=== PATIENT | female | born 1960 | race Caucasian/White ===

== ENCOUNTER → 2021-03-09 08:08 | Outpatient (CLI) | payer BC, SELFPAY ==
--- NOTE | ~2021-03-09 | US_ITS ---
EXAMINATION: US pelvic complete DATE: 03/09/2021 08:34 INDICATION: Left lower quadrant pain TECHNIQUE: Multiple transabdominal and endovaginal sonographic images of the pelvis were obtained. COMPARISON: None. FINDINGS: The uterus is surgically absent. The ovaries are not visualized however no adnexal abnormal ity is seen. There is no free fluid in the pelvis. No sonographically detected abnormality is seen in the area of patient's left lower quadrant pain. IMPRESSION: 1. No sonographic correlate for the patient's symptoms. Reviewed, dictated and finalized at location B.
== END ==
PROVIDERS: Visit Provider Physician Assistant
DX: R10.32 Left lower quadrant pain (principal)
CPT/HCPCS: 76856

== ENCOUNTER → 2021-04-06 08:10 | Outpatient (CLI) | payer BC, SELFPAY ==
--- NOTE | ~2021-04-06 | CT_ITS ---
EXAMINATION: CT abdomen pelvis w con DATE: 04/06/2021 09:04 INDICATION: Left lower quadrant pain TECHNIQUE: Computed tomography (CT) of the abdomen and pelvis was performed with 100 cc Omnipaque 350 intravenous contrast. The dose-length product was 711.65 mGy-cm. Automated exposure control and iter ative reconstruction technique were employed. COMPARISON: None. FINDINGS: Bibasilar dependent atelectasis. Heart size is normal. No significant pleural or pericardia l effusion. Gallbladder is present. Nonobstructive bowel gas pattern. Colonic diverticulosis without evidence for diverticulitis. Normal appendix. The liver, spleen, pancreas, adrenal glands and right kidney are unremarkable. There is a small subce ntimeter hypodensity of the left kidney, most likely benign cysts. No free air or free fluid. Colonic diverticula without evidence for diverticulitis. There is a benign calcification in the left pelvis, likely sequela of epiploic appendagitis there is a fat-containing umbilical hernia. There is moderat e lumbar spondylosis. IMPRESSION: 1. No acute abdominal abnormality. Reviewed, dictated and finalized at location B. INTERFACE ARTIST
[2021-04-06 08:48] LABS: Estimated Glomerular Filt Rate > 60
== END ==
PROVIDERS: PCP Physician Assistant; Visit Provider Physician Assistant
DX: R10.32 Left lower quadrant pain (principal)
CPT/HCPCS: 74177; Q9967

== ENCOUNTER 2023-12-19 07:26 | Outpatient (CLI) | payer MEDICARE, SELFPAY ==
--- NOTE | ~2023-12-19 | DEXA_ITS ---
Bone Density Report Name: DELMAR DUKES Age: 63 Sex: Female Ethnicity: Lizzy Date of : 1960 Indication: postmenopausal; screening for osteoporosis; hysterectomy; Referring Provider: Caprice Carpenter Study: Bone densitometry was performed. Exam Date: December 19, 2023 Accession number: [id number] Bone Density: Region BMD T-score Z-score Classification AP Spine(L1-L4) 1.007 -0.4 1.4 Normal Femoral Neck (Left) 0.618 -2.1 -0.6 Osteopenia Total Hip (Left) 0.778 -1.3 -0.1 Osteopenia Femoral Neck (Right) 0.567 -2.5 -1.0 Osteoporosis Total Hip (Right) 0.757 -1.5 -0.3 Osteopenia Femoral Neck Mean 0.592 -2.3 -0.8 Osteopenia Total Hip Mean 0.768 -1.4 -0.2 Osteopenia World Health Organization criteria for BMD impression classify patients as: Normal (T-score at or above -1.0), Osteopenia (T-score between -1.0 and -2.5), or Osteoporosis (T-score at or below -2.5). 10-year Fracture Risk: FRAX not reported because: Some T-score for Spine Total or Hip Total or Femoral Neck at or below -2.5 Clinical Information Provided by Patient: Has used the following medications: Vitamin D, Calcium Has the following medical conditions: Hysterectomy Patient maximum height was 64.0 Menopause Age: 41 No regular weight bearing exercise Drinks caffeinated beverages Onset of menses at age 10 Number of children 0 Impression: The patient has osteoporosis, based on the Right Femoral Neck T-score. Discussion: INCREASED RISK OF FRACTURE. BONE DENSITY IS UNDESIRABLY LOW AT ONE OR MORE SKELETAL SITES, CONSISTENT WITH POSTMENOPAUSAL OSTEOPOROSIS. This patient's lowest T-score meets the World Health Organization's (WHO) criteria for osteoporosis at one or more sites (T-score -2.5 or below). In untreated patients, the risk of osteoporotic fracture increases approximately two-fold for each 1.0 SD decrease in T-score. Low bone density is not the only risk factor for fracture; also consider factors such as patient's age, frailty or poor health, risk of falling, risk of injury, previous osteoporotic fracture, family history of osteoporosis, cigarette smoking, low body weight, etc. Not everyone with low bone mineral density has osteoporosis; osteomalacia and other metabolic bone disorders should also be considered. Patients who have osteoporosis should be evaluated for specific diseases and conditions (secondary causes) that may cause or contribute to bone loss. The [place] Association of Clinical Endocrinologists (AACE) and National Osteoporosis Foundation (NOF) recommend pharmacologic intervention for all postmenopausal women whose T-score is in this range. The patient should follow a healthful lifestyle (good nutrition with adequate calcium and vitamin D, and appropriate weight-bearing exercise). Follow-Up: Co
== END 2023-12-19 07:27 | disposition home or self-care (01) ==
LOC: CHSIMG 07:34
PROVIDERS: PCP Internal Medicine; Visit Provider Internal Medicine
DX: Z78.0 Asymptomatic menopausal state (principal); M85.89 Other specified disorders of bone density and structure, multiple sites; M81.0 Age-related osteoporosis without current pathological fracture
CPT/HCPCS: 77080

== ENCOUNTER 2024-01-27 12:54 | Outpatient (CLI) | payer MEDICARE, SELFPAY ==
[2024-01-27 13:26] VITALS: BMI 29.2
[2024-01-27 13:27] VITALS: BP 140/74; PULSE 70; RESP 16; TEMP 36.3; O2SAT 94
[2024-01-27] MEDS: ZOLEDRONIC ACID 5 MG/100 ML 100 ML 400 MG IVPB (13:40)
== END 2024-01-27 12:55 | disposition home or self-care (01) ==
PROVIDERS: PCP Internal Medicine; Visit Provider Internal Medicine
DX: M81.0 Age-related osteoporosis without current pathological fracture (principal)
CPT/HCPCS: 96374; J3489

== ENCOUNTER 2024-07-02 14:30 | Outpatient (CLI) | payer MEDICARE, SELFPAY ==
--- NOTE | ~2024-07-02 | MM_ITS ---
EXAMINATION: MM screening ramu BI w freedom HISTORY: Screening mammogram TECHNIQUE: Craniocaudal and mediolateral oblique 3-D tomosynthesis images were obtained and synthetic 2-D images were generated. CAD analysis was submitted and interpreted. COMPARISON: No prior mammogram is available for comparison at this institution. BREAST PARENCHYMAL COMPOSITION:Dense: The breasts are heterogeneously dense, which may obscure small masses. FINDINGS: No suspicious mass, calcification, or architectural distortion are identified in either mercy ast to suggest malignancy. There has been no suspicious interval change. IMPRESSION: No mammographic evidence of malignancy. Recommend routine screening mammography in one year. BI-RADS Category 1: Negative Reviewed, dictated and finalized at location . BUILDER MACHINE
--- OUTSIDE RECORDS SUMMARY | 2024-07-02 16:53 | XMS_ITS | Clinical Summary ---
Author Organization [facility] Address [address] [place] [address] Care Team Providers Care Sap Crm Developer Name Role Phone Gautam Macias PA-C Primary Care Provider [phone] Sumeet Burnett MD Unavailable Allergies Active Allergy Reactions Criticality Noted Date Comments Iodinated Contrast Media Rash Low 02/16/2023 Shrimp (Diagnostic) Hives,Shortness of Breath High 1 Medications sertraline (ZOLOFT) 100 MG tablet Take 1 tablet (100 mg total) by mouth daily. Active atorvastatin (LIPITOR) 80 MG tablet Take 1 tablet (80 mg total) by mouth nightly at bedtime. Active metoprolol succinate ER (TOPROL-XL) 100 MG 24 hr tablet Take 1 tablet (100 mg total) by mouth daily. Active hydroCHLOROthia zide (HYDRODIURIL) 25 MG tablet Take 1 tablet (25 mg total) by mouth every morning. Active losartan (COZAAR) 100 MG tablet Take 1 tablet (100 mg total) by mouth daily. Active omeprazole (PRILOSEC) 20 MG capsule Take 1 capsule (20 mg total) by mouth daily. Active Zinc 50 MG Tab Activ e calcium carb-cholecalci ferol (CALCIUM 600+D) 600-10 MG-MCG Tab tablet 1 tablet daily. Active MULTIPLE VITAMIN OR Active vitamin C (ASCORBIC ACID) 250 MG tablet Take 1 tablet (250 mg total) by mouth daily. Active vitamin E 100 UNIT capsule Take 1 capsule (100 Units total) by mouth daily. Active Active Problems Problem Noted Date Diagnosed Date Vascular malformation (HHS/HCC) 03/15/2023 Chronic venous insufficiency 03/15/2023 Primary hypertension 03/15/2023 Hyperlipidemia, unspecified hyperlipidemia type 03/15/2023 Varicose veins of bilateral lower extremities with other complications 03/04/2023 Family History Relation Status Comments Father Maternal Grandfather Maternal Grandmother Mother Paternal Grandfather Paternal Grandmother Social History Tobacco Use Types Packs/Day Years Used Date Smoking Tobacco: Never Smokeless Tobacco: Never Tobacco Cessation:Counseling Given: Not Answered Alcohol Use Standard Drinks/Week Comments Not Currently 0 (1 standard drink = 0.6 oz pur e alcohol) Comments No Sex and Gender Information Value Date Recorded Sex Assigned at Not on file Legal Sex Female 11:26 PM GLAZE MIXER Gender Identity Not on file Sexual Orientation Not on file Last Filed Vital Signs Vital Sign Reading Time Taken Comments Blood Pressure 141/85 03/15/2023 2:07 PM GLAZE MIXER Pulse 82 03/15/2023 2:07 PM GLAZE MIXER Temperature - - Respiratory Rate 82 03/15/2023 2:07 PM GLAZE MIXER Oxygen Saturation 95% 03/15/2023 2:07 PM GLAZE MIXER Inhaled Oxygen Concentration - - Weight 75 kg (165 lb 4 oz) 03/15/2023 2:07 PM CS T Height 162.6 cm (5' 4 ) 03/15/2023 2:07 PM GLAZE MIXER Body Mass Index 28.37 03/15/2023 2:07 PM GLAZE MIXER Plan of Treatment Health Maintenance Due Date Last Done Comments Colorectal Cancer Screening Colonoscopy (10 Years) 1960 Hepatitis C 1976 DTaP, Tdap and Td Vaccines (1 - Tdap) 1977 Zoster Vaccines (1 of 2) 2008 Pneumococcal Vaccine: 65+ Years (1 of 1 - PCV) 10/28/2023 COVID-19 Vaccine (3 - season) 2024 12/20/2020, 12/01/2020 Influenza Adult (#1) 2024 Mammogram Screening 02/28/2025 02/28/2023, 02/24/2022, 02/02/2021, Additional history exists RSV Immunization or 60+ Years (1 - 1-dose 75+ series) 2033 Dexa Scan (General) Completed 02/24/2022 Meningococcal B Vaccine Aged Out No l onger eligible based on patient's age to complete this topic Meningococcal Vaccine Aged Out No chaim sheri eligible based on patient's age to complete this topic Pneumococcal Vaccine: Pediatrics (0 to 5 Years) and At-Risk Patients (6 to 64 Years) Aged Out No longer eligible based on patient's age to complete this topic RSV Immunizations Under 20 Months Aged Out No longer eligible based on patient's age to complete this topic Procedures Procedure Name Priority Date/Time Associated Diagnosis Comments MG SCREENING W HELEN ARELI DIGI Routine 02/28/2023 10:10 AM CDT Screening mammogram, encounter for BONE DENSITY/DEXA Routine 02/24/2022 2:0 0 PM CDT Postmenopausal from Last 3 Months or Most Recently Relevant to Health Maintenance Results * MG SCREENING W HELEN ARELI DIGI (02/28/2023 10:10 AM CDT) Anatomical Region Laterality Modality Breast Bilateral Mammography 02/28/2023 3:57 PM CDT Narrative 02/28/2023 3:58 PM CDT Examination: Digital screening mammogram with CAD. Clinical history: Asymptomatic patient presents for routine screening. Comparison: 02/24/2022, 02/02/2021, 01/21/2020, 01/15/2019. Technique: Bilateral digital mammograms. The exam was interpreted with the use of a computer-aided detection (CAD) system. Additional 3-D tomosynthesis images were acquired. Tissue density: The breast tissue is heterogeneously dense. Findings: The breast tissue is heterogeneously dense. The dense tissue may obscure some lesions mammographically. Benign-appearing calcification noted. No suspicious mass, microcalcification or area of architectural distortion can be identified. From a mammographic standpoint, routine followup in one year would seem adequate. IMPRESSION: No suspicious change since the previous exams. Recommendation: 1: Routine Screening Bilateral in 1 Year Assessment: ACR BI-RADS 2 - BENIGN FINDING(S) Ordered By: SALMA MOSES Interpreted By: Nicola Bowman MD, 02/28/2023 3:57 PM us Salma Moses MD MAMMO Final Result * BONE DENSITY/DEXA (02/24/2022 2:00 PM CDT) Anatomical Region Laterality Modality Bone Bone Density 02/24/2022 4:15 PM CDT Impressions 02/24/2022 4:17 PM CDT Impression: BMD measured at both total hips and both femoral necks at WHO category level of osteopenia. BMD measured at AP lumbar spine at level of normal. Ordered By: GAUTAM MACIAS Interpreted By: Jair Jc MD, 02/24/2022 4:15 PM Narrative 02/24/2022 4:17 PM CDT Examination: DEXA Bone densitometry EXAM DATE: 02/24/2022 2:00 PM Clinical history: Postmenopausal. Calcium supplementation. Vitamin D use. Prior hysterectomy. Dairy product consumption. Technique: DEXA bone minimal density evaluation was performed in the AP projection over the lumbar spine and over both hips in the AP projection utilizing standard imaging techniques. Assessment: The BMD measured at the AP spine L1-L4 is 0.993 g/cm2 with a T-score of -0.5 and a Z-Score of 1.2. Bone density is up to 10% below young normal. This patient is considered normal according to the World Health Organization (WHO) criteria. Fracture risk is low. The BMD measured at the femur total left is 0.771 g/cm2 with a T-score of -1.4 and a Z-Score of -0.3. The patient is considered osteopenic according to World Health Organization (WHO) criteria. Bone density is between 10 and 25% below young normal. Fracture risk is moderate. Treatment is advised. The BMD measured at the left femoral neck is 0.638 g/sq cm resulting in a T score of -1.9 and a Z score of -0.5, values at the WHO category level of osteopenia. The BMD measured at the femur total right is 0.763 g/cm2 with a T-score of -1.5 and aZ-Score of -0.3. The patient is considered osteopenic according to World Health Organization (WHO) criteria. Bone density is between 10 and 25% below young normal. Fracture risk is moderate. Treatment is advised. The BMD measured at the right femoral neck is 0.588 g/sq cm resulting in a T score of -2.4 and a Z score of -0.9, values at the WHO category level of osteopenia. FRAX results: 10 year probability of major osteoporotic fracture 11% and of hip fracture 1.9%. Recommendations: All patients should ensure an adequate intake of dietary calcium and vitamin D. The NOF recommend adults under the age of 50 need 1000 mg of calcium and 400-800 IU of vitamin D daily. Effective therapy for the prevention and treatment of osteoporosis include biphosphonates. Follow-up: People with diagnosed cases of osteoporosis or at high risk for fracture should have regular bone mineral density test. For patients eligible for Medicare, routine testing is allowed once every 2 years. Testing frequency can be increased to one year for patients who have rapidly progressing disease, those who are receiving or discontinuing medical therapy to restore bone mass, or have additional risk factors. Based on these results, a followup exam is recommended in no earlier than 2 years for routine follow-up. As early as 1 year to assess efficacy of new medication therapy for treatment of osteoporosis. Procedure Note Jair Jc MD - 02/24/2022 Examination: DEXA Bone densitometry EXAM DATE: 02/24/2022 2:00 PM Clinical history: Postmenopausal. Calcium supplementation. Vitamin D use.Prior hysterectomy. Dairy product consumption. Technique: DEXA bone minimal density evaluation was performed in the APprojection over the lumbar spine and over both hips in the AP projectionutilizing standard imaging techniques. Assessment: The BMD measured at the AP spine L1-L4 is 0.993 g/cm2 with a T-score of-0.5 and a Z-Score of 1.2. Bone density is up to 10% below youngnormal. This patient is considered normal according to the World HealthOrganization (WHO) criteria. Fracture risk is low. The BMD measured at the femur total left is 0.771 g/cm2 with a T-score of-1.4 and a Z-Score of -0.3. The patient is considered osteopenicaccording to World Health Organization (WHO) criteria. Bone density isbetween 10 and 25% below young normal. Fracture risk is moderate.Treatment is advised. The BMD measured at the left femoral neck is 0.638 g/sq cm resulting in aT score of -1.9 and a Z score of -0.5, values at the WHO category level ofosteopenia. The BMD measured at the femur total right is 0.763 g/cm2 with a T-score of-1.5 and aZ-Score of -0.3. The patient is considered osteopenicaccording to World Health Organization (WHO) criteria. Bone density isbetween 10 and 25% below young normal. Fracture risk is moderate.Treatment is advised. The BMD measured at the right femoral neck is 0.588 g/sq cm resulting in aT score of -2.4 and a Z score of -0.9, values at the WHO category level ofosteopenia. FRAX results: 10 year probability of major osteoporotic fracture 11% andof hip fracture 1.9%. Recommendations: All patients should ensure an adequate intake of dietary calcium andvitamin D. The NOF recommend adults under the age of 50 need 1000 mg ofcalcium and 400-800 IU of vitamin D daily. Effective therapy for theprevention and treatment of osteoporosis include biphosphonates. Follow-up: People with diagnosed cases of osteoporosis or at high risk for fractureshould have regular bone mineral density test. For patients eligible forMedicare, routine testing is allowed once every 2 years. Testing frequencycan be increased to one year for patients who have rapidly progressingdisease, those who are receiving or discontinuing medical therapy torestore bone mass, or have additional risk factors. Based on these results, a followup exam is recommended in no earlier than2 years for routine follow-up. As early as 1 year to assess efficacy ofnew medication therapy for treatment of osteoporosis. Impression: BMD measured at both total hips and both femoral necks at WHO categorylevel of osteopenia. BMD measured at AP lumbar spine at level of normal. Ordered By: GAUTAM MACIAS Interpreted By: Jair Jc MD, 02/24/2022 4:15 PM us Gautam Macias PA-Kyrie DEXA Final Resul t from Last 3 Months or Most Recently Relevant to Health Maintenance Insurance [employer] Care Teams Sap Crm Developer Relationship Specialty Start Date End Date Gautam Macias PACaroleC [address] [place] [address] PCP - General PHYSICIAN BACK LINE COOK 02/23/22 Sumeet Burnett MD [address] [place] [address] Consulting Physician INTERNAL MEDICINE 02/10/23
--- OUTSIDE RECORDS SUMMARY | 2024-07-02 16:53 | XMS_ITS | Encounter Summary ---
Author Organization [facility] Address [address] [place] [address] Care Team Providers Care Comber Setter Name Role Phone Salma Moses MD Primary Care Provider [phone] Alee Henderson PA-C Primary Care Provider [phone] Sumeet Burnett MD Unavailable Encounter Details Date Type Department Care Team (Late st Contact Info) Description 10/14/2018 Abstract SFL CONVERSION [address] [place] [address] , Generic ConversionMD Social History Tobacco Use Types Packs/Day Years Used Date Smoking Tobacco: Never Assessed Comments Unknown Sex and Gender Information Value Date Recorded Sex Assigned at Not on file Legal Sex Female 11:26 PM PSYCHOLOGY PHYSICIAN Gender Identity Not on file Sexual Orientation Not on file documented as of this encounter Plan of Treatment Not on file documented as of this encounter Visit Diagnoses Not on filedocumented in this encounter Care Teams Comber Setter Relationship Specialty Start Date End Date Salma Moses MD [address] [place] [address] PCP - General FAMILY PRACTICE 01/15/19 02/22/22 Alee Henderson PA-C [address] [place] [address] PCP - General PHYSICIAN FITTER MECHANIC 02/23/22 Sumeet Burnett MD [address] [place] [address] Consulting Physician INTERNAL MEDICINE 02/10/23 documented as of this encounter
== END 2024-07-02 14:31 | disposition home or self-care (01) ==
LOC: CHSIMG 14:32
PROVIDERS: PCP Internal Medicine; Visit Provider Internal Medicine
DX: Z12.31 Encounter for screening mammogram for malignant neoplasm of breast (principal)
CPT/HCPCS: 77063; 77067

== ENCOUNTER 2025-02-20 12:52 | Outpatient (CLI) | payer MEDICARE, SELFPAY ==
[2025-02-20 13:08] VITALS: BP 135/83; PULSE 80; RESP 16; TEMP 36.4; O2SAT 98; BMI 29.2
[2025-02-20] MEDS: ZOLEDRONIC ACID 5 MG/100 ML 100 ML 400 MG IVPB (13:15)
--- NOTE | 2025-02-20 13:32 | PC.NURSE ---
Patient tolerated yearly Reclast infusion well. SEE MAR/patient care notes.
[2025-02-20 13:35] VITALS: BP 139/86; PULSE 78
--- OUTSIDE RECORDS SUMMARY | 2025-02-20 14:41 | XMS_ITS | Encounter Summary ---
Author Organization [facility] Address [address] [place] [address] Care Team Providers Care Anodizer Name Role Phone Salma Moses MD Primary Care Provider [phone] Alee Henderson PA-C Primary Care Provider [phone] Sumeet Burnett MD Unavailable Encounter Details Date Type Department Care Team (Late st Contact Info) Description 10/14/2018 Abstract SFL CONVERSION [address] [place] [address] , Generic ConversionMD Social History Tobacco Use Types Packs/Day Years Used Date Smoking Tobacco: Never Assessed Comments Unknown Sex and Gender Information Value Date Recorded Sex Assigned at Not on file Legal Sex Female 11:26 PM E COMMERCE DEVELOPER Gender Identity Not on file Sexual Orientation Not on file documented as of this encounter Plan of Treatment Not on file documented as of this encounter Visit Diagnoses Not on filedocumented in this encounter Care Teams Anodizer Relationship Specialty Start Date End Date Salma Moses MD [address] [place] [address] PCP - General FAMILY PRACTICE 01/15/19 02/22/22 Alee Henderson PA-C [address] [place] [address] PCP - General PHYSICIAN PSYCHOLOGIST INDUSTRIAL ORGANIZATIONAL 02/23/22 Sumeet Burnett MD [address] [place] [address] Consulting Physician INTERNAL MEDICINE 02/10/23 documented as of this encounter
--- OUTSIDE RECORDS SUMMARY | 2025-02-20 14:41 | XMS_ITS | Clinical Summary ---
Author Organization [facility] Address [address] [place] [address] Care Team Providers Care Frame Fixer Name Role Phone Gautam Macias PA-C Primary Care Provider [phone] Sumeet Burnett MD Unavailable Allergies Active Allergy [...] Problem Noted Date Diagnosed Date Vascular malformation 03/15/2023 Chronic venous insufficiency 03/15/2023 Primary hypertension [...] on file Legal Sex Female 11:26 PM MANAGER COMPANY Gender Identity Not on file Sexual Orientation Not on file Last Filed Vital Signs Vital Sign Reading Time Taken Comments Blood Pressure 141/85 03/15/2023 2:07 PM MANAGER COMPANY Pulse 82 03/15/2023 2:07 PM MANAGER COMPANY Temperature - - Respiratory Rate 82 03/15/2023 2:07 PM MANAGER COMPANY Oxygen Saturation 95% 03/15/2023 2:07 PM MANAGER COMPANY Inhaled Oxygen Concentration - - Weight 75 kg (165 lb 4 oz) 03/15/2023 2:07 PM CS T Height 162.6 cm (5' 4) 03/15/2023 2:07 PM MANAGER COMPANY Body Mass Index 28.37 03/15/2023 2:07 PM MANAGER COMPANY Plan of Treatment Health Maintenance Due Date Last Done Comments Colorectal Cancer Screening Colonoscopy (10 Years) 1960 Hepatitis C 1976 DTaP, Tdap and Td Vaccines (1 - Tdap) 1977 Pneumococcal Vaccine: 50+ Years (1 of 1 - PCV) 2008 Zoster Vaccines (1 of 2) 2008 COVID-19 Vaccine (3 - season) 2025 12/20/2020, 12/01/2020 Influenza Adult (#1) 2025 Mammogram Screening 02/28/2025 02/28/2023, 02/24/2022, 02/02/2021, Additional [...] MD, 02/24/2022 4:15 PM us Gautam Macias PA-C DEXA Final Resul t from Last 3 Months or Most Recently Relevant to Health Maintenance Insurance [employer] Care Teams Frame Fixer Relationship Specialty Start Date End Date Gautam Macias PA-C [address] [place] [address] PCP - General PHYSICIAN INFECTION CONTROL PRACTITIONER 02/23/22 Sumeet Burnett MD [address] [place] [address] Consulting Physician INTERNAL MEDICINE 02/10/23
== END 2025-02-20 12:53 | disposition home or self-care (01) ==
PROVIDERS: PCP Internal Medicine; Visit Provider Internal Medicine
DX: M81.0 Age-related osteoporosis without current pathological fracture (principal)
CPT/HCPCS: 96374; J3489

== ENCOUNTER 2025-03-26 08:28 | Outpatient (CLI) | payer MEDICARE, SELFPAY ==
--- NOTE | ~2025-03-26 | DEXA_ITS ---
Bone Density Report Name: DELMAR DUKES Age: 64 Sex: Female Ethnicity: Lizzy Date of : 1960 Indication: postmenopausal; screening for osteoporosis; height loss; hysterectomy; Referring Provider: Caprice Carpenter Study: Bone densitometry was performed. Exam Date: March 26, 2025 Accession number: [id number] Bone Density: Region BMD T-score Z-score Classification AP Spine(L1-L4) 1.056 0.1 1.9 Normal Femoral Neck (Left) 0.592 -2.3 -0.7 Osteopenia Total Hip (Left) 0.876 -0.5 0.8 Normal Femoral Neck (Right) 0.580 -2.4 -0.8 Osteopenia Total Hip (Right) 0.855 -0.7 0.6 Normal Femoral Neck Mean 0.586 -2.4 -0.8 Osteopenia Total Hip Mean 0.866 -0.6 0.7 Normal World Health Organization criteria for BMD impression classify patients as: Normal (T-score at or above -1.0), Osteopenia (T-score between -1.0 and -2.5), or Osteoporosis (T-score at or below -2.5). 10-year Fracture Risk: FRAX not reported because: Treated for osteoporosis Clinical Information Provided by Patient: Is being treated for osteoporosis Has used the following medications: Prolia (i.e. denosumab), Calcium Has the following medical conditions: Hysterectomy Patient maximum height was 64 Menopause Age: 41 No regular weight bearing exercise Drinks caffeinated beverages Onset of menses at age 10 Number of children 0 Impression: The patient has low bone mass, based on the Right Femoral Neck T-score. Discussion: It is important to ask patients whether they are taking their medications and to encourage continued and appropriate compliance with their osteoporosis therapies to reduce fracture risk. It is also important to review their risk factors and encourage appropriate calcium and vitamin D intakes, exercise, fall prevention and other lifestyle measures. Follow-Up: Consider a repeat BMD and Vertebral Fracture Assessment (VFA) exam in 2 years or sooner if medically necessary, to reassess this patient's status. Reported by: BONIFACIO on 03/26/2025 9:01:00 AM. Reviewed, dictated and finalized at location A.
== END 2025-03-26 08:29 | disposition home or self-care (01) ==
PROVIDERS: PCP Internal Medicine; Visit Provider Internal Medicine
DX: M81.0 Age-related osteoporosis without current pathological fracture (principal); M85.89 Other specified disorders of bone density and structure, multiple sites
CPT/HCPCS: 77080